=== PATIENT | female | born 1960 | race Caucasian/White ===

== ENCOUNTER → 2018-02-23 | Outpatient (CLI) | payer BC ==
[~2018-02-23] VITALS: Ht 175.3 cm; Wt 102.7 kg
[~2018-02-23] MED LIST: ASPIRIN 81M81 MG/TA2 PO; FLEXERIL 1010 MG/TAB PO; IMODIUM 2MG CAPS2 MG PO; MAGNESIUM250 M1 PO; MOTRIN 800800 MG/TAB PO; MULTI VITAMINS1 TAB PO; NEURONTIN300 MG/CAP PO; PRILOSEC 20MG20 MG PO; PRINZIDE 12.5 M1 TAB PO; PROBIOTIC FORMU1 CAP PO; SYNTHROID0.125 MG/T PO; TYLENOL 8 HR PO
[2018-02-23 08:33] VITALS: BP 119/73; PULSE 59
[2018-02-23 10:30] VITALS: BP 92/57; PULSE 63
[2018-02-23 10:35] VITALS: BP 96/52; PULSE 63
[2018-02-23 10:50] VITALS: BP 104/57; PULSE 61
[2018-02-23 11:05] VITALS: BP 101/62; PULSE 62
== END ==
LOC: COL.RAD 07:45
DX: M51.36 Other intervertebral disc degeneration, lumbar region (principal); M48.061 Spinal stenosis, lumbar region without neurogenic claudication; M41.84 Other forms of scoliosis, thoracic region; M51.34 Other intervertebral disc degeneration, thoracic region; Z90.710 Acquired absence of both cervix and uterus; Z90.722 Acquired absence of ovaries, bilateral; Z96.611 Presence of right artificial shoulder joint; Z90.49 Acquired absence of other specified parts of digestive tract
CPT/HCPCS: A9585; G9654; J2250; J2405; J2704; J3010